=== PATIENT | female | born 1945 | race Caucasian/White ===

== ENCOUNTER 2016-08-27 23:28 | Emergency (ER) | payer BC, OTHER ==
[2016-08-27 23:01] LABS: BASOPHILS 0.2 %; BASOPHILS ABSOLUTE 0.01 10/3/uL (0.0-0.16); EOSINOPHILS 2.8 %; EOSINOPHILS ABSOLUTE 0.13 10/3/uL (0.0-0.53); ER CBC TAT 0 Hrs 05 Mins; HEMOGLOBIN 10.6 g/dL (12.0-16.0); IMMATURE GRANULOCYTES 0.2 %; IMMATURE GRANULOCYTES ABSOLUTE 0.01 10/3/uL (0.0-0.11); LYMPHOCYTES 25.5 %; LYMPHOCYTES ABSOLUTE 1.18 10/3/uL (0.67-4.30); MEAN CORPUS HGB CONC 32.1 g/dL (32.0-36.0); MEAN CORPUSCULAR HEMOGLOB 26.7 pg (26.0-34.0); MEAN PLATELET VOLUME 11.9 fL (9.2-13.0); MONOCYTES 11.9 %; MONOCYTES ABSOLUTE 0.55 10/3/uL (0.21-1.20); NEUTROPHILS 59.4 %; NEUTROPHILS ABSOLUTE 2.75 10/3/uL (2.02-8.40); PLATELET COUNT 150 10/3/uL (150-400); RBC DISTRIBUTION WIDTH 16.7 % (12.0-16.0); RED CELL COUNT 3.97 10/6/uL (4.0-5.6); WHITE BLOOD CELLS 4.6 10/3/uL (4.5-10.5)
[2016-08-27 23:06] LABS: MANUAL DIFF NO %; MEAN CORPUSCULAR VOLUME 83.1 fL (80-100)
[2016-08-27 23:14] LABS: INTERNATIONAL NORMAL RATI 1.4 UNITS (-); PARTIAL THROMBO TIME 32.1 SEC (22.5-37.2); PROTIME (NOT ORD) 16.6 SEC (12.0-14.5)
[2016-08-27 23:16] LABS: A/G RATIO 0.6 (0.7-1.9); ALBUMIN 2.6 G/DL (3.5-5.0); BUN (BLOOD UREA NITROGEN) 15 MG/DL (6-23); CHLORIDE, SERUM 106 MMOL/L (96-112); CO2 (CARBON DIOXIDE) 25 MMOL/L (24-34); CREATININE 0.93 MG/DL (0.55-1.02); GFR AFRICAN AMERICAN 71 ML/MIN (>=60); GFR NON AFRICAN AMERICAN 61 ML/MIN (>=60); GLOBULIN 4.1 G/DL (2.5-4.1); POTASSIUM, SERUM 4.1 MMOL/L (3.5-5.3); SGOT(AST) 35 U/L (5-40); SGPT(ALT) 26 U/L (5-65); SODIUM, SERUM 138 MMOL/L (135-148); TOTAL PROTEIN 6.7 G/DL (6.0-8.5)
[2016-08-27 23:18] LABS: ALKALINE PHOSPHATASE 278 U/L (45-117); GLUCOSE, SERUM 345 MG/DL (60-99); TOTAL BILIRUBIN 1.2 MG/DL (0-1.2)
[~2016-08-27 23:28] MED LIST: AMARYL4 PO; ASAB PO; AVAPRO300 MG PO; BENICAR40 PO; CYMBALTA30 PO; FORTAMET1000 MG PO; FORTAMET500 MG PO; GLUCOPHAGE1000 MG PO; GLUCPH PO; L20 PO; LANTUS SC; LEVAQUIN5T PO; LEVOTHYROXIN200 MCG PO; NEUR300 PO; NEXIUM40 PO; NORCO1 TA1 PO; NOVOLOG SC; NOVOLOGMIX SC; NOVOPEN SC; P1 PO; PROTONIX PO; SPIRO50 PO; TOPXL50 PO; ULTRAM50 PO; VITAMIN D1000 UNI1 PO; ZOCOR20 PO
[2016-12-24] MEDS ORDERED: NOVOLOG SC ×2 (23:04)
[2016-12-24] MEDS ORDERED: SYN.15 PO (23:05)
[2016-12-24] MEDS ORDERED: LEVEMIR SC (23:05)
[2016-12-24] MEDS ORDERED: PRILO PO (23:06)
[2016-12-24] MEDS ORDERED: XIFAXAN550 MG PO (23:06)
[2016-12-24] MEDS ORDERED: ASAB PO (23:06)
[2016-12-24] MEDS ORDERED: LAMICTAL25 PO (23:07)
[2016-12-24] MEDS ORDERED: MAGOX4 PO (23:07)
[2016-12-24] MEDS ORDERED: TOPXL50 PO (23:07)
[2016-12-24] MEDS ORDERED: KEPPRA1000 MG PO (23:08)
[2016-12-24] MEDS ORDERED: P1 PO (23:08)
[2016-12-24] MEDS ORDERED: SUPER B COMP PO (23:08)
[2016-12-24] MEDS ORDERED: B1100 PO (23:08)
[2016-12-24] MEDS ORDERED: PAZEO2.5 ML OPH (23:09)
[2016-12-24] MEDS ORDERED: CONSTULOSE PO (23:09)
[2016-12-24] MEDS ORDERED: CYMBALTA60 PO (23:10)
[2016-12-24] MEDS ORDERED: NEUR400 PO (23:10)
[2016-12-24] MEDS ORDERED: DUONEB INH (23:10)
[2016-12-24] MEDS ORDERED: ATV.5 PO (23:10)
[2016-12-24] MEDS ORDERED: NORCO1 TA1 PO (23:11)
[2016-12-24] MEDS ORDERED: ULTRAM50 PO (23:11)
[2017-01-26] MEDS ORDERED: GLUCOSE PO (15:32)
[2017-01-26] MEDS ORDERED: LEVOTHROID125 MCG PO (15:33)
[2017-01-26] MEDS ORDERED: ZOFRAN4 SL (15:34)
[2017-01-26] MEDS ORDERED: SPIRO25 PO (15:38)
[2017-01-26] MEDS ORDERED: I10 PO (15:38)
[2017-01-26] MEDS ORDERED: ZINC220C PO (15:39)
[2017-01-26] MEDS ORDERED: MAGOX4 PO (15:44)
[2017-01-26] MEDS ORDERED: XIFAXAN550 MG PO (15:51)
[2017-01-26] MEDS ORDERED: GLUCAGON EMERGENCY IM (15:52)
[2017-01-27] MEDS ORDERED: TOPXL50 PO (09:24)
[2017-01-27] MEDS ORDERED: P1 PO (09:25)
[2017-01-27] MEDS ORDERED: PROSOURCE PO (09:29)
== END 2016-08-28 01:43 | disposition home or self-care (01) ==
LOC: ER 23:28
PROVIDERS: Hospitalist
DX: R04.0 Epistaxis (principal); K92.1 Melena; D64.9 Anemia, unspecified; K64.9 Unspecified hemorrhoids; Z90.49 Acquired absence of other specified parts of digestive tract; Z88.8 Allergy status to other drugs, medicaments and biological substances; Z79.84 Long term (current) use of oral hypoglycemic drugs; Z79.4 Long term (current) use of insulin; Z79.82 Long term (current) use of aspirin; Z79.899 Other long term (current) drug therapy
CPT/HCPCS: 36415; 80053; 83735; 85025; 85610; 85730; 86850; 86900; 86901; 99285